=== PATIENT | male | born 1995 | race Caucasian/White ===

== ENCOUNTER 2020-11-30 11:54 | Emergency (ER) | payer SELFPAY ==
[~2020-11-30] VITALS: Ht 165.1 cm; Wt 77.1 kg
--- NOTE | 2020-11-30 12:15 | NUR ---
Patient to ER bed 6 to gown for evaluation. Side rails up. Report given to Lilliam ACUNA.
[2020-11-30 12:18] VITALS: BP_SYST 133
--- NOTE | 2020-11-30 12:30 | NUR ---
PT CAME TO ER C/O PAIN RUQ ABD INTERMITTANT SINCE AUGUST. STATES TODAY HE HAD SEVERAL EPISODES OF PAIN THIS MORNING WHICH MADE HIM COME TO ER. DENIES MEDICAL HX. PT IS AMBULATORY, AAOX4, V/S STABLE
--- NOTE | 2020-11-30 13:20 | NUR ---
ER DR. VILLAREAL AT THE BEDSIDE EXAMINNG PT
[2020-11-30] MEDS ORDERED: ASPIRIN 81 MG TAB.CHEW PO ONE (13:30)
--- NOTE | 2020-11-30 13:43 | NUR ---
PORTABLE X-RAY AT THE BEDSIDE
--- NOTE | 2020-11-30 13:51 | NUR ---
LAB AT THE BEDSIDE FOR BLOOD DRAW
[2020-11-30 14:03] LABS: BASOPHILS # (AUTO) 0.1 K/uL (0.0-0.2); BASOPHILS % (AUTO) 0.8 % (0.0-2.0); EOSINOPHILS # (AUTO) 0.2 K/uL (0.0-0.4); EOSINOPHILS % (AUTO) 2.1 % (0.0-4.0); HEMATOCRIT 45.7 % (36-54); HEMOGLOBIN 15.7 g/dL (14.0-18.0); LYMPHOCYTES # (AUTO) 3.2 K/uL (1.0-5.5); LYMPHOCYTES % (AUTO) 34.3 % (20.5-51.5); MEAN CORPUSCULAR HEMOGLOBIN 29 pg (27-31); MEAN CORPUSCULAR HGB CONC 34 % (32-36); MEAN CORPUSCULAR VOLUME 85 fL (79.0-98.0); MONOCYTES # (AUTO) 0.5 K/uL (0.0-1.0); MONOCYTES % (AUTO) 5.5 % (1.7-9.3); NEUTROPHILS # (AUTO) 5.4 K/uL (1.8-7.7); NEUTROPHILS % (AUTO) 57.3 % (40.0-70.0); PLATELET COUNT (AUTO) 374 K/uL (130-430); RED BLOOD CELL COUNT(AUTO) 5.36 MIL/uL (4.2-6.2); RED CELL DISTRIBUTION WIDTH 14.1 % (9.0-15.0); WHITE BLOOD COUNT (AUTO) 9.4 K/uL (4.8-10.8)
[2020-11-30 14:19] LABS: CREATININE 0.83 mg/dL (0.55-1.30)
[2020-11-30 14:22] LABS: PROTHROMBIN TIME 9.9 SECS (9.5-12.5)
[2020-11-30 14:25] LABS: ALBUMIN 4.2 g/dL (3.4-4.8); TOTAL BILIRUBIN 0.8 mg/dL (0.0-1.0)
[2020-11-30 15:02] LABS: ERYTHROCYTE SEDIMENTATION RATE 4 MM/HR (0-15)
[2020-11-30 15:05] VITALS: BP_SYST 132
--- NOTE | 2020-11-30 15:05 | NUR ---
Patient given written and verbal discharge instructions and verbalizes understanding. ER MD discussed with patient the results and treatment provided. Patient in stable condition. ID arm band removed. NO Rx given. Patient educated on pain management and to follow up with PMD. Pain Scale 0/10. Opportunity for questions provided and answered. Medication side effect fact sheet provided.
== END 2020-11-30 15:05 | disposition home or self-care (01) ==
LOC: SED 11:54
DX: R00.2 Palpitations (principal); R07.89 Other chest pain
CPT/HCPCS: 36415; 71045; 80053; 83880; 84484; 85025; 85379; 85610-TC; 85651-TC; 93005; 99285